=== PATIENT | female | born 1995 | race American Indian/Alaskan Native ===

== ENCOUNTER 2019-10-11 08:51 | Emergency (ER) | payer SELFPAY ==
[2019-10-11 09:04] VITALS: BP 127/62
== END 2019-10-11 11:49 | disposition left against medical advice (07) ==
LOC: ED 08:51
DX: R25.1 Tremor, unspecified (principal); Z53.21 Procedure and treatment not carried out due to patient leaving prior to being seen by health care provider

== ENCOUNTER 2020-04-08 12:03 | Outpatient (CLI) | payer OTHER ==
[2020-04-08 12:45] VITALS: BP 111/62
[2020-04-08] MEDS ORDERED: LACTATED RINGERS 1,000 ML IV SCH (13:00)
[2020-04-08 13:14] LABS: Bacteria,Urine 1+ /HPF (Negative); Bilirubin,Urine NEG (Negative); Blood,Urine NEG (Negative); Color,Urine Yellow (Yellow); Mucus,Urine FEW /HPF; Protein,Urine <15 mg/dL mg/dL (Negative)
== END 2020-04-08 13:38 | disposition home or self-care (01) ==
LOC: TRG 12:03 → APU 12:08 → TRG 13:38
PROVIDERS: ATTEND Obstetrics & Gynecology
DX: O26.892 Other specified pregnancy related conditions, second trimester (principal); R10.9 Unspecified abdominal pain; N64.4 Mastodynia; Z3A.26 26 weeks gestation of pregnancy
CPT/HCPCS: 81001; 87086

== ENCOUNTER 2020-06-16 09:56 | Outpatient (CLI) | payer MEDICAID ==
[2020-06-16 11:32] VITALS: BP 117/64
== END 2020-06-16 12:38 | disposition home or self-care (01) ==
LOC: TRG 09:56 → APU 09:58 → TRG 12:38
PROVIDERS: ATTEND Obstetrics & Gynecology
DX: O47.03 False labor before 37 completed weeks of gestation, third trimester (principal); Z3A.36 36 weeks gestation of pregnancy
CPT/HCPCS: 59025

== ENCOUNTER 2020-07-16 08:43 | Inpatient (IN) | payer MEDICAID ==
--- NOTE | 2020-07-16 11:18 | History and Physical Report ---
History of Present Illness Date of examination: 07/16/20 Date of admission: 07/16/20 08:49 Chief complaint: Here for scheduled IOL for obesity. History of present illness: 25 year old presents for scheduled induction of labor for obesity. Patient received care at [facility] and records are available. LMP . EDC 07/13/2020 (by 15 week, 2 day US). significant for the following: obesity, gonorrhea during (treated 2 times and denies IC after treated for the 2nd time), increased carrier risk for SMA, silent carrier for alpha-thalassemia, anemia (saw hematology, was supplemented with iron), elevated hemoglobin A1C (6.1), 1 hour sugar test 106. labs are as follows: B+, antibody screen negative, rubella immune, hepatitis B surface antigen negative, hepatitis C antibody negative, HIV negative, RPR nonreactive, varicella immune, gonorrhea positive (treated), chlamydia negative, trichomonas negative, GBS negative. Past History Past Medical History: other (obesity, seasonal allergies) Past Surgical History: no surgical history [employer] History: gonorrhea (treated during 2 times) Family/Genetic History: none Social history: full code. denies: smoking, alcohol abuse, prescription drug abuse, IV drug use - Obstetrical History Expected Date of Delivery: 07/13/20 Actual Gestation: 40 Week(s) 3 Day(s) : 1 Para: 0 Hx # Term Pregnancies: 0 Number of Pregnancies: 0 Spontaneous Abortions: 0 Induced : 0 Number of Living Children: 0 Medications and Allergies Allergies Allergy/AdvReac Type Severity Reaction Status Date / Time No Known Allergies Allergy Verified 04/08/20 12:47 Active Meds: Active Medications Ephedrine Sulfate (Ephedrine Sulfate 50 Mg/1 Ml Inj) 10 mg IV Q2M PRN PRN Reason: Hypotension Fentanyl (Fentanyl 100 Mcg/2 Ml Inj) 100 mcg IV Q2H PRN PRN Reason: Pain,Severe (7-10) LABOR PAIN Lactated Ringer's (Lactated Ringers) 1,000 mls @ 125 mls/hr IV DIRECT YANI Oxytocin/Sodium Chloride (Pitocin/Ns 30 Unit/500ml) 30 units in 500 mls @ 40 mls/hr IV TITR YANI; Protocol Lidocaine (Lidocaine (2%) 20 Mg/1 Ml Vial 20 Ml Mdv) 20 ml INFILTRATI ONCE YANI Stop: 07/17/20 11:29 Terbutaline Sulfate (Terbutaline 1 Mg/1 Ml Inj) 0.25 mg SUB-Q ONCE PRN PRN Reason: Hyperstimulation/Hypertonicity Review of Systems All systems: negative (rare contraction) - Vital Signs Vital signs: Vital Signs Pulse BP 104 H 128/70 07/16/20 09:32 07/16/20 09:32 Temp Pulse Resp BP Pulse Ox 104 H 128/70 07/16/20 09:32 07/16/20 09:32 - Physical Exam Abdomen: Positive: normal appearance, soft. Negative: distention, tenderness, guarding, rigidity Genitourinary (Female): Positive: normal external genitalia, normal perenium. Negative: perineal/vulvar lesions Vagina: Positive: normal moisture Uterus: Positive: enlarged. Negative: tender Anus/Rectum: Positive: normal perianal skin Extremities: Positive: normal. Negative: tenderness, edema - Obstetrical FHR: category 1 Uterine Contraction Monitor Mode: External Cervical Dilatation: 1 Cervical Effacement Percentage: 20 station: -4 Uterine Contraction Pattern: Irregular Uterine Contraction Intensity: Mild Results All other labs normal. Assessment and Plan A: at 40 weeks, 3 days gestation. Obesity. GBS negative. P: Admit for scheduled IOL. Continuous EFM. Cervical ripening, followed by IOL. US to confirm cephalic presentation. Discussed with patient risks and benefits of cervical ripening and induction of labor. Patient consented to cervical ripening and induction of labor.
[2020-07-16] MEDS ORDERED: TERBUTALINE 1 MG/1 ML INJ SUB-Q PRN (11:30)
[2020-07-16] MEDS ORDERED: ePHEDrine SULFATE 50 MG/1 ML INJ IV PRN (11:30)
[2020-07-16] MEDS ORDERED: LIDOCAINE (2%) 20 MG/1 ML VIAL 20 ML MDV INFILTRATI SCH (11:30)
[2020-07-16] MEDS: LACTATED RINGERS 1,000 ML IV SCH (11:46)
[2020-07-16 12:03] LABS: Hemoglobin 11.5 gm/dl (10.1-14.3); Mean Corpuscular HGB Conc 33 % (30-34); Mean Corpuscular Volume 78 fl (79-97)
[2020-07-16 12:04] LABS: Red Cell Distribution Width 26.4 % (13.2-15.2)
[2020-07-16 12:06] LABS: Platelet Count 108 K/mm3 (140-440)
--- NOTE | 2020-07-16 12:27 | Ultrasound Report ---
US OB limited INDICATION / CLINICAL INFORMATION: presentation. COMPARISON: None available. FINDINGS: Single, viable intrauterine in cephalic presentation. heart rate 149. IMPRESSION: 1. Cephalic presentation. Signer Name: Jose M Hallman MD Signed: 07/16/2020 12:23 PM Workstation Name: [id number]
[2020-07-16] MEDS ORDERED: DINOPROSTONE 10 MG VAG SUPP VG ONE (14:15)
--- NOTE | 2020-07-16 19:13 | Event Note ---
Date: 07/16/20 Patient reports frequent contractions. Several variable FHR decelerations noted. Cervidil removed. SVE 1.5//-3.
[2020-07-17] MEDS: OXYTOCIN DRIP 30 UNITS/500 ML BAG IV SCH ×2 (01:20→22:05)
[2020-07-17] MEDS: LACTATED RINGERS 1,000 ML IV SCH ×2 (03:35→22:05)
[2020-07-17] MEDS ORDERED: DINOPROSTONE 10 MG VAG SUPP VG ONE (07:30)
--- NOTE | 2020-07-17 10:15 | Progress Note ---
Assessment and Plan A: at 40 weeks, 4 days gestation. Obesity. P: Cervidil for cervical ripening. Continuous EFM. Subjective - Subjective Date of service: 07/17/20 Principal diagnosis: at 40 4/7 weeks gestation; obesity Interval history: Patient is having labor induced due to obesity and being several days past her due date. She received Pitocin overnight (low dose) for a short time but began having FHR decelerations. Pitocin was discontinued. Cervidil was placed this AM and at that exam cervix was unchanged with the exception of being more anterior in vagina and softer. Patient denies vaginal bleeding or leaking of fluid. Patient reports active movement. Patient reports: movement normal, no loss of fluid, no vaginal bleeding Objective - Vital Signs Vital Signs: Vital Signs - 12hr 07/16/20 07/17/20 07/17/20 23:10 00:20 03:10 Temperature 98.8 F 98.1 F Pulse Rate 94 H Blood Pressure 136/76 - Exam Abdomen: Present: normal appearance, soft. Absent: distention, tenderness, guarding, rigidity Uterus: Present: normal, fundal height above umbilicus. Absent: tenderness FHR: category 1 Uterine Contraction Monitor Mode: External Cervical Dilatation: 1.5 Cervical Effacement Percentage: 50 station: -3 Uterine Contraction Pattern: Irregular Uterine Contraction Intensity: Mild - Labs Labs: Abnormal Labs 07/16/20 11:45 MCV 78 L MCH 26 L RDW 26.4 H Plt Count 108 L Laboratory Results - last 24 hr 07/16/20 07/16/20 07/16/20 10:58 11:45 11:45 WBC 7.0 RBC 4.50 Hgb 11.5 Hct 35.0 MCV 78 L MCH 26 L MCHC 33 RDW 26.4 H Plt Count 108 L Syphilis IgG Antibody Coronavirus (PCR) Negative Blood Type B POSITIVE Antibody Screen Negative 07/16/20 11:45 WBC RBC Hgb Hct MCV MCH MCHC RDW Plt Count Syphilis IgG Antibody Nonreactive Coronavirus (PCR) Blood Type Antibody Screen
--- NOTE | 2020-07-17 19:20 | Event Note ---
Date: 07/17/20 Cervidil removed. Cervix is softer. Will start Pitocin at 10 PM. Patient to eat and shower. Category 1 FHR tracing. Patient reports mild cramps. Denies leaking of fluid or vaginal bleeding.
[2020-07-17 20:29] LABS: Alanine Aminotransferase 12 units/L (7-56); Albumin 3.6 g/dL (3.9-5); Blood Urea Nitrogen 5 mg/dL (7-17); Calcium 9.5 mg/dL (8.4-10.2); Hemolysis Index 2
[2020-07-17 20:31] LABS: BUN/Creatinine Ratio 10
--- NOTE | 2020-07-17 23:33 | Event Note ---
Date: 07/17/[address] Aquino re: this patient. Informed him of progress so far and FHR tracing. Dr. Aquino orders to place another Cervidil overnight for further cervical ripening. Cervidil ordered and nurse notified.
[2020-07-18] MEDS ORDERED: DINOPROSTONE 10 MG VAG SUPP VG ONE (00:45)
[2020-07-18] MEDS: LACTATED RINGERS 1,000 ML IV SCH ×2 (06:33→14:30)
[2020-07-18] MEDS: fentaNYL 100 MCG/2 ML INJ IV PRN ×2 (06:50→11:59)
--- NOTE | 2020-07-18 09:08 | Progress Note ---
Assessment and Plan A: IUP@ 40 5/7 wks IOL r/t obesity P: Continue monitoring with cervidil Pain med/Epidural prn Anticipate progress Subjective - Subjective Date of service: 07/18/20 Principal diagnosis: at 40 4/7 weeks gestation; obesity Patient reports: movement normal, no loss of fluid, no vaginal bleeding Objective - Vital Signs Vital Signs: Vital Signs - 12hr 07/17/20 07/18/20 07/18/20 22:35 04:03 04:05 Temperature 98.7 F 98.8 F Pulse Rate 90 90 Respiratory Rate Blood Pressure 123/61 Blood Pressure 123/61 [Right] O2 Sat by Pulse Oximetry 07/18/20 07:10 Temperature 98.5 F Pulse Rate 90 Respiratory 12 Rate Blood Pressure Blood Pressure [Right] O2 Sat by Pulse 100 Oximetry - Exam Breasts: normal Abdomen: Present: normal appearance, soft, normal bowel sounds, other (gravid) Vulva: both: normal Uterus: Present: normal, other (gravid) FHR: auscultation normal, category 1 Uterine Contraction Monitor Mode: External Uterine Contraction Pattern: Irregular Uterine Tone Measurement Phase: Resting Uterine Contraction Intensity: Mild Extremities: normal - Labs Labs: Abnormal Labs 07/16/20 07/17/20 11:45 19:46 MCV 78 L MCH 26 L RDW 26.4 H Plt Count 108 L BUN 5 L Creatinine 0.5 L Albumin 3.6 L Laboratory Results - last 24 hr 07/17/20 19:46 Sodium 137 Potassium 4.0 Chloride 104.3 Carbon Dioxide 22 Anion Gap 15 BUN 5 L Creatinine 0.5 L Estimated GFR > 60 BUN/Creatinine Ratio 10 Glucose 98 Calcium 9.5 Total Bilirubin 0.30 AST 19 ALT 12 Alkaline Phosphatase 115 Total Protein 6.5 Albumin 3.6 L Albumin/Globulin Ratio 1.2
[2020-07-18] MEDS ORDERED: LACTATED RINGERS 1,000 ML IV SCH (12:30)
[2020-07-18] MEDS: OXYTOCIN DRIP 30 UNITS/500 ML BAG IV SCH (14:32)
[2020-07-18] MEDS ORDERED: ceFAZolin/Water 2 GM/20 ML 2 GM/20 ML SYRINGE IV NR (17:00)
[2020-07-18] MEDS ORDERED: FAMOTIDINE 20 MG/2 ML INJ IV ONE ×2 (17:00→17:17)
[2020-07-18] MEDS ORDERED: METOCLOPRAMIDE 10 MG/2 ML INJ IV NR (17:00)
[2020-07-18] MEDS ORDERED: BICITRA ORAL LIQD 30ML PO NR (17:00)
[2020-07-18] MEDS ORDERED: ceFAZolin/Water 2 GM/20 ML 2 GM/20 ML SYRINGE IV ONE (17:17)
[2020-07-18] MEDS ORDERED: METOCLOPRAMIDE 10 MG/2 ML INJ ONE (17:18)
[2020-07-18] MEDS ORDERED: BICITRA ORAL LIQD 30ML ONE (17:18)
--- NOTE | 2020-07-18 17:35 | Anesthesia Day of Surgery ---
Anesthesia Day of Surgery - Day of Surgery Patient Examined: Yes Patient H&P Reviewed: Yes Patient is NPO: No (patient understands risk, consent to proceed ) Beta Blockers: No Cardiac Clearance: No Pulmonary Clearance: No Ilir's Test: N/A
[2020-07-18] MEDS ORDERED: HYDROmorphone 1 MG/1 ML INJ IV PRN (17:36)
[2020-07-18] MEDS ORDERED: ONDANSETRON 4 MG/2 ML INJ IV PRN (17:36)
--- NOTE | 2020-07-18 17:36 | Anesthesia Consultation ---
Anesthesia Consult and Med Hx Date of service: 07/18/20 - Airway Anesthetic Teeth Evaluation: Good ROM Head & Neck: Adequate Mental/Hyoid Distance: Adequate Mallampati Class: Class II Intubation Access Assessment: Probably Good - Pulmonary Exam CTA: Yes - Cardiac Exam Cardiac Exam: RRR - Pre-Operative Health Status ASA Pre-Surgery Classification: ASA2, Emergency Proposed Anesthetic Plan: Epidural, Spinal - Pulmonary Hx Smoking: No Hx Asthma: No Hx Respiratory Symptoms: No SOB: No COPD: No Home Oxygen Therapy: No Hx Pneumonia: No Hx Sleep Apnea: No - Cardiovascular System Hx Hypertension: No Hx Coronary Artery Disease: No Hx Heart Attack/AMI: No Hx Angina: No Hx Percutaneous Transluminal Coronary Angioplasty (PTCA): No Hx Cardia Arrhythmia: No Hx Pacemaker: No Hx Internal Defibrillator: No Hx Valvular Heart Disease: No Hx Heart Murmur: No Hx Peripheral Vascular Disease: No - Central Nervous System Hx Neuromuscular Disorder: No Hx Seizures: No CVA: No Hx Back Pain: Yes Hx Psychiatric Problems: No - Gastrointestinal Hx Ulcer: No Hx Gastroesophageal Reflux Disease: Yes - Endocrine Hx Renal Disease: No Hx End Stage Renal Disease: No Hx Cirrhosis: No Hx Liver Disease: No Hx Insulin Dependent Diabetes: No Hx Non-Insulin Dependent Diabetes: No Hx Thyroid Disease: No Hx Hypothyroidism: No Hx Hyperthyroidism: No - Hematic Hx Anemia: Yes Hx Sickle Cell Disease: No - Other Systems Hx Alcohol Use: No Hx Substance Use: No Hx Cancer: No Hx Obesity: Yes
[2020-07-18] MEDS ORDERED: ONDANSETRON 4 MG/2 ML INJ ONE ×2 (17:58)
[2020-07-18] MEDS ORDERED: SODIUM CHLORIDE 0.9% IRR 1,500 ML BOTTLE IR ONE (18:00)
[2020-07-18] MEDS ORDERED: WATER FOR IRRIG STERILE 1,500 ML BOTTLE IR ONE (18:00)
[2020-07-18] MEDS ORDERED: dexAMETHasone 20 MG/5 ML VIAL ONE (18:24)
[2020-07-18] MEDS ORDERED: BUPIVACAINE/PF (0.5%) 5 MG/1 ML 30 ML VIAL INFILTRATI ONE (18:25)
[2020-07-18] MEDS ORDERED: SODIUM CHLORIDE 0.9% 100 ML ONE (18:25)
[2020-07-18] MEDS ORDERED: KETOROLAC 30 MG/1 ML INJ ONE (18:34)
[2020-07-18] MEDS ORDERED: PHENYLEPHRINE/NS 1,000 MCG/10 ML SYRINGE (OR USE) IV ONE ×2 (18:34→18:41)
[2020-07-18] MEDS ORDERED: miSOPROStol 200 MCG TAB ONE (19:32)
--- NOTE | 2020-07-18 19:47 | Event Note ---
Date: 07/18/20 pt evaluated after receiving sign out from vaccine managerKerry. Pelvic exam done and same unchanged at /-3 with tacchycardia in the 170's and remote from delivery. Discussed plan of care for section for delivery and pt educated on the risks, benefits and alternatives and consents signed. All questions encouraged and answered. NICU and anesthesia notified.
--- NOTE | 2020-07-18 20:05 | Procedure Note ---
OB Delivery Note - Delivery Date of Delivery: 07/18/20 Surgeon: SERINA LINDSAY (staging technician Lorena Emanuel and Serina Varela took over for closure of the fascia) Estimated blood loss: 1000cc - Section Preop diagnosis: other (term IUP at 40.5wks, failed induction, tacchycardia in the 170's, remote from delivery, Thrombocytopenia) Postop diagnosis: same section procedure: primary low transverse Disposition: floor Complications: none Narrative: Date: 07/18/20 Surgeon: Serina Lindsay MD Preop Dx: IUP at 40.5wks, failed induction, tacchycardia, remote from delivery, thrombocytopenia Postop Dx: same Procedure : Primary Low transverse section Anesthesia: Spinal Intake: 1300cc Output: 200cc clear urine EBL: 1000cc After the risks, benefits and alternatives of procedure discussed, patient signed consents and was taken to the operating room. Pt was given spinal anesthesia. After same was adequate, patient was prepped and draped in the usual sterile fashion. Austin catheter placed and draining clear urine. Pt was given prophylactic antibiotic per protocol and time out was done Pfannenstiel skin incision was made and taken sharply to the fascia and the incision extended using electrocautery. Superior edge of the fascia was grasped with samantha clamps and the rectus muscle using blunt dissection and also using electrocautery. Lower portion of the fascia also sharply. Rectus muscle in the midline and Peritoneal cavity entered bluntly and extended with good visualization of the bladder. The bladder flap was created sharply using metzenbaum scissors. Lower uterine segment then entered transversely and amniotic sac entered using allys clamps. Uterine incision extended using bandage scissors. Infant delivered, bulb suctioned, cord clamped and baby handed to waiting pediatricians. Placenta then delivered completely and uterine cavity cleared of all clots and debri. The uterus was not exteriorized and closed in 2 layers using [0-vicryl] suture in a running locked fashion and then an additional layer of imbrication suture. Excellent hemostasis noted. The gutters were cleared of clots and debri and anterior peritoneum closed using 3-0 vicryl suture and rectus muscle reapproximated using o-vicryl suture. Rectus fascia closed with 0-vicryl suture and subcutaneous tissue copiously irrigated with normal saline and re-approximated using 3-0 vicryl suture. Excellent hemostasis remains. The skin was closed with 3-0 monocryl suture and steristrips placed with pressure dressing. Sponge, lap, instrument and needle counts x2 were normal. Patient tolerated the procedure well and was taken to recovery room stable. Cytotec 800mcg per rectum placed with thrombocytopenia. Findings: Viable female infant, APGARS 8/9 and weight 3423g. Normal uterus, tubes and ovaries. - A at 1 minute: 8 at 5 minutes: 9 Infant Gender: Female
--- NOTE | 2020-07-18 20:11 | Progress Note ---
Labor Epidural - Labor Epidural Start Time: 17:41 Stop Time: 19:55 Performed by:: NEETA MENA Procedure: Patient is requesting a laboring epidural for laboring pain. Patient IDed, H&P reviewed, all questions and concerns were answered, and consent was signed. Timeout was performed at bedside. Patient in sitting position. Sterile prep and drape was performed. [4] ml of 1% lidocaine skin wheal at L[4]- L [5]. 18- gauge Tuohy epidural needle was advanced to loss of resistance with air technique to 7cm. Negative CSF negative blood via Tuohy needle. #27g Spinal needle clear, free flowing CSF, Buvicaine 0.75% and Pecedex 10 mcg. Epidural catheter advanced to [11] centimeters. [negative] Aspiration [negative] test dose. Sterile dressing applied. Patient tolerated procedure.
--- NOTE | 2020-07-18 20:12 | Progress Note ---
Subjective Date of service: 07/18/20 Principal diagnosis: Regional Anesthesia Block - at 40 4/7 weeks gestation; obesity Interval history: Patient consented for TAP block for post surgical pain management. Patient identified, monitors placed, and time out performed. TAP identified bilaterally via ultrasound. Skin prepped bilaterally with [chlorhexidine] and [22g stimuplex] needle advanced to the TAP. [Marcaine 0.22% 35ml] injected under ultrasound guidance on the [left] side. [Marcaine 0.22% 35ml] injected under ultrasound guidance on the [right] side. Negative aspiration every 5mL, No change in heart rate or rhythm. Patient tolerated the procedure well. No apparent complications seen. Objective - Constitutional Vitals: Vital Signs - 12hr 07/18/20 07/18/20 07/18/20 11:26 11:30 14:20 Temperature 98.5 F Pulse Rate 95 H 95 H 102 H Respiratory 14 Rate Blood Pressure 128/60 123/69 Blood Pressure 120/60 [Right] O2 Sat by Pulse Oximetry 07/18/20 07/18/20 07/18/20 14:22 14:36 15:38 Temperature 98.3 F Pulse Rate 102 H 96 H 83 Respiratory 14 Rate Blood Pressure 122/64 117/57 Blood Pressure 123/69 [Right] O2 Sat by Pulse Oximetry 07/18/20 07/18/20 07/18/20 17:01 20:00 20:05 Temperature 98.1 F 98.3 F Pulse Rate 95 H 80 86 Respiratory 16 19 11 L Rate Blood Pressure 119/59 116/59 131/76 Blood Pressure 116/59 [Right] O2 Sat by Pulse 99 99 Oximetry - Labs CBC & Chem 7: 07/16/20 11:45 07/17/20 19:46 Labs: Abnormal lab results 07/17/20 Range/Units 19:46 BUN 5 L (7-17) mg/dL Creatinine 0.5 L (0.6-1.2) mg/dL Albumin 3.6 L (3.9-5) g/dL
--- NOTE | 2020-07-18 20:13 | Post Anesthesia Evaluation ---
- Post Anesthesia Evaluation Patient Participated: Yes Airway Patent: Yes Stable Respiratory Function: Yes Nausea/Vomiting: No Temp > 96.8F: Yes Pain Manageable: Yes Adequeate Hydration: Yes Anesthesia Complications: No Block Receding Appropriately: Yes Patient on Ventilator: No
[2020-07-18] MEDS ORDERED: WITCH HAZEL/ GLYCERIN PAD TP PRN (22:22)
[2020-07-18] MEDS ORDERED: MAGNESIUM HYDROXIDE (MOM) ORAL LIQD UDC PO PRN (22:22)
[2020-07-18] MEDS ORDERED: oxyCODONE /ACETAMINOPHEN 5-325MG TAB PO PRN (22:22)
[2020-07-18] MEDS ORDERED: LANOLIN/ZINC/DIMETHICONE (LANSINOH) 7 GM TP PRN (22:22)
[2020-07-18] MEDS ORDERED: SIMETHICONE 80 MG CHEW TAB PO PRN (22:22)
[2020-07-18] MEDS ORDERED: KETOROLAC 30 MG/1 ML INJ IV PRN (22:22)
[2020-07-18] MEDS ORDERED: NALOXONE 0.4 MG/1 ML INJ IV PRN (22:22)
[2020-07-18] MEDS ORDERED: OXYTOCIN DRIP 30 UNITS/500 ML BAG IV SCH (22:22)
[2020-07-18] MEDS ORDERED: MORPHINE 4 MG/1 ML INJ IV PRN (22:22)
[2020-07-19] MEDS: LACTATED RINGERS 1,000 ML IV SCH (01:08)
[2020-07-19] MEDS: ceFAZolin/NS 1 GM/50 ML 1 GM/50 ML BAG IV SCH ×2 (01:14→10:10)
[2020-07-19 06:17] LABS: Hematocrit 29.7 % (30.3-42.9); Hemoglobin 9.4 gm/dl (10.1-14.3); Mean Corpuscular HGB Conc 32 % (30-34); Mean Corpuscular Volume 79 fl (79-97); Red Blood Count 3.76 M/mm3 (3.65-5.03)
[2020-07-19 06:19] LABS: Platelet Count 119 K/mm3 (140-440); Red Cell Distribution Width 24.8 % (13.2-15.2)
[2020-07-19 07:02] LABS: Total Cells Counted 100
[2020-07-19 07:04] LABS: Anisocytosis 2+; Hypochromasia 1+; Platelet Estimate Consistent w Auto; Tear Drop Cells Few
[2020-07-19] MEDS: FERROUS SULFATE 325 MG TAB PO SCH (10:10)
[2020-07-19] MEDS: PRENATAL VIT27-FE FUMARATE-FOLIC ACID VIT TAB PO SCH (10:10)
--- NOTE | 2020-07-19 10:29 | Progress Note ---
Assessment and Plan - Patient Problems (1) Status post primary low transverse section Current Visit: Yes Status: Acute Plan to address problem: Continue routine PP orders Keep dressing clean and dry, remove on POD#2 Increase water intake and ambulate in room and hallways to facilitate flatus release Anticipate d/c home in 24-48hr if stable (2) Anemia Current Visit: Yes Status: Acute Qualifiers: Anemia type: other cause Other causes of anemia: acute posthemorrhagic Qualified Code(s): D62 - Acute posthemorrhagic anemia Plan to address problem: Asymptomatic Increase iron rich foods into diet once regular diet is resumed Subjective - Subjective Date of service: 07/19/20 Principal diagnosis: S/P primary C/S; POD#1 Interval history: See admission H & P; OB operative summary and PP progress notes Patient reports: appetite normal, voiding normally, pain well controlled (with medications), ambulating normally, no flatus, no bowel movement : doing well, bottle feeding (and ) Objective - Vital Signs Latest vital signs: Vital Signs Temp Pulse Resp BP BP Pulse Ox 07/19/20 07:51 98.0 F 85 20 114/58 96 07/19/20 05:03 97.9 F 85 20 115/62 95 07/19/20 00:24 98.0 F 77 20 110/63 97 07/18/20 21:45 98.3 F 74 18 125/84 07/18/20 21:00 98.1 F 76 14 119/59 98 07/18/20 20:45 77 12 114/60 98 07/18/20 20:30 79 19 110/55 98 07/18/20 20:15 78 19 124/67 98 07/18/20 20:10 80 21 111/63 98 07/18/20 20:05 86 11 L 131/76 99 07/18/20 20:00 98.3 F 80 19 116/59 99 07/18/20 17:01 98.1 F 95 H 16 119/59 116/59 07/18/20 15:38 83 117/57 07/18/20 14:36 96 H 122/64 07/18/20 14:22 98.3 F 102 H 14 123/69 07/18/20 14:20 102 H 123/69 07/18/20 11:30 95 H 128/60 07/18/20 11:26 98.5 F 95 H 14 120/60 Intake and Output 07/18/20 07/19/20 07/19/20 23:59 07:59 15:59 Intake Total 2405.500 290 120 Output Total 250 1050 Balance 2155.500 -760 120 Intake: IV 2405.500 50 ANCEF/NS 1 GM/50 ML 1 gm 50 In 50 ml @ 100 mls/hr IV Q8H YANI Rx#:[id number] Lactated Ringers 1,000 ml 1000 @ 125 mls/hr IV DIRECT YANI Rx#:[id number] PITOCin/NS 30 UNIT/500ML 5.500 30 units In 500 ml @ 40 mls/hr IV TITR YANI Rx#: [id number] Oral 240 120 Output: Urine 250 1050 Indwelling Catheter 900 Void 150 Other: Total, Intake Amount 120 120 Total, Output Amount 150 Estimated Blood Loss 1,000 - Exam Breasts: Present: normal Cardiovascular: Present: Regular rate Lungs: Present: Normal air movement Abdomen: Present: soft, tenderness Uterus: Present: firm, fundal height below umbilicus (U-2) Extremities: Present: normal Deep Tendon Reflex Grade: Normal +2 Incision: Present: dressed (no shadow drainage or bleeding noted) - Labs Labs: Abnormal lab results 07/19/20 Range/Units 05:50 WBC 14.8 H (4.5-11.0) K/mm3 Hgb 9.4 L (10.1-14.3) gm/dl Hct 29.7 L (30.3-42.9) % MCH 25 L (28-32) pg RDW 24.8 H (13.2-15.2) % Plt Count 119 L (140-440) K/mm3 Seg Neuts % (Manual) 95.0 H (40.0-70.0) % Lymphocytes % (Manual) 3.0 L (13.4-35.0) % Seg Neutrophils # Man 14.1 H (1.8-7.7) K/mm3 Lymphocytes # (Manual) 0.4 L (1.2-5.4) K/mm3
[2020-07-19] MEDS ORDERED: OXYTOCIN DRIP 30 UNITS/500 ML BAG IV SCH (13:00)
[2020-07-19] MEDS: IBUPROFEN 800 MG TAB PO PRN (23:30)
[2020-07-20] MEDS: FERROUS SULFATE 325 MG TAB PO SCH (10:00)
[2020-07-20] MEDS: PRENATAL VIT27-FE FUMARATE-FOLIC ACID VIT TAB PO SCH (10:00)
--- NOTE | 2020-07-20 10:34 | Progress Note ---
Assessment and Plan A: Postop Day 2 Asymptomatic Anemia P: Follow routine postop orders Continue Ferrous Sulfate 325mg PO q day; continue at home Return to clinic in 1 week for incision check Return to clinic in 6 weeks for check Subjective - Subjective Date of service: 07/20/20 Principal diagnosis: S/P primary C/S; POD#2 Patient reports: appetite normal, voiding normally, pain well controlled, flatus, bowel movement, ambulating normally : doing well, bottle feeding (and ) Objective - Vital Signs Latest vital signs: Vital Signs Temp Pulse Resp BP Pulse Ox 07/20/20 07:44 97.8 F 83 18 115/71 98 07/19/20 23:11 98.5 F 88 20 118/56 99 07/19/20 16:33 98.7 F 75 20 122/71 99 07/19/20 11:59 97.9 F 80 20 108/61 99 Intake and Output 07/19/20 07/20/20 07/20/20 22:59 06:59 14:59 Intake Total 480 240 Balance 480 240 Intake: Oral 480 240 Other: Total, Intake Amount 240 240 # Voids Void 1 1 - Exam Breasts: Present: normal Cardiovascular: Present: Regular rate, Normal S1, Normal S2 Lungs: Present: Clear to auscultation, Normal air movement Abdomen: Present: normal appearance, soft, normal bowel sounds Uterus: Present: normal, firm, fundal height below umbilicus Extremities: Present: normal Incision: Present: normal, dry, intact
--- NOTE | 2020-07-20 10:39 | Discharge Summary ---
Providers - Providers Date of Admission: 07/16/20 08:49 Date of discharge: 07/20/20 Attending physician: NORMA AMATO 07/19/20 18:55 Consult to Utilities Equipment Repairer [CONS] Routine Reason For Exam: Mother requesting help with /latching Primary care physician: CODE INSPECTOR Hospitalization Reason for admission: induction of labor Delivery: Procedure: primary low transverse Incision: normal, dry, intact Other procedures: none complications: none Discharge diagnosis: IUP at term delivered Olla baby: female Condition at discharge: Good Disposition: DC-01 TO HOME OR SELFCARE Plan - Discharge Medications Prescriptions: oxyCODONE /ACETAMINOPHEN [Percocet 5/325] 1 tab PO Q4HR 21 Days #30 tab - Provider Discharge Summary Activity: routine, no sex for 6 weeks, no heavy lifting 4 weeks, no strenuous exercise Diet: routine Instructions: routine Additional instructions: [] Smoking cessation referral if applicable(refer to patient education folder for contact #) [] Refer to [facility] Booklet Call your doctor immediately for: * Fever > 100.5 * Heavy vaginal bleeding ( >1 pad per hour) * Severe persistent headache * Shortness of breath * Reddened, hot, painful area to leg or breast * Drainage or odor from incision. * Keep incision clean and dry at all times and follow doctor's instructions regarding bathing/showering - Follow up plan Follow up: PRIMARY CARE, [Primary Care Provider] - 7 Days
[2020-07-20] MEDS: IBUPROFEN 800 MG TAB PO PRN (11:58)
[2020-07-20 12:30] VITALS: BP 121/78
== END 2020-07-20 12:40 | disposition home or self-care (01) | DRG 765 ==
LOC: UNDOADMIN 08:43 → APU 08:43 → LD 08:49 → OB 07-18 21:50
PROVIDERS: ADMIT Obstetrics & Gynecology; ATTEND Obstetrics & Gynecology
PROC: 10D00Z1 Extraction of Products of Conception, Low, Open Approach (ICD-10-PCS; principal; 2020-07-18)
PROC: 3E0R3BZ Introduction of Anesthetic Agent into Spinal Canal, Percutaneous Approach (ICD-10-PCS; 2020-07-18)
PROC: 00HU33Z Insertion of Infusion Device into Spinal Canal, Percutaneous Approach (ICD-10-PCS; 2020-07-18)
PROC: 3E0T3BZ Introduction of Anesthetic Agent into Peripheral Nerves and Plexi, Percutaneous Approach (ICD-10-PCS; 2020-07-18)
DX: O99.214 Obesity complicating childbirth (principal); O99.12 Other diseases of the blood and blood-forming organs and certain disorders involving the immune mechanism complicating childbirth; D62 Acute posthemorrhagic anemia; O48.0 Post-term pregnancy; E66.9 Obesity, unspecified; O61.9 Failed induction of labor, unspecified; O76 Abnormality in fetal heart rate and rhythm complicating labor and delivery; D69.6 Thrombocytopenia, unspecified; Z3A.40 40 weeks gestation of pregnancy; Z37.0 Single live birth; Z20.822 Contact with and (suspected) exposure to COVID-19
CPT/HCPCS: 36415; 59200; 76815; 80053; 85007; 85025; 85027; 86592; 86850; 86900; 86901; 88307; G0378; J0690; J1100; J1885; J2270; J2370; J2405; J2590; J2765; J3010; J7120; U0003